=== PATIENT | female | born 1940 | race Caucasian/White ===

== ENCOUNTER 2023-09-01 23:47 | Inpatient (IN) | payer OTHER ==
[~2023-09-01] VITALS: Ht 157.5 cm; Wt 36.7 kg
[2023-09-02] VITALS (48 sets, daily range): BP systolic 75–138; BP diastolic 29–107; TEMP 98–99.8; O2SAT 90–100
[2023-09-02] MEDS ORDERED: VANCOMYCIN 1 GM in IV D5W 250 ML IV ONE ×2
[2023-09-02] MEDS ORDERED: IV NS 0.9% 1,000 ML BAG IV ONE
[2023-09-02] MEDS ORDERED: CEFEPIME 1 GM in IV D5W 50 ML IV ONE ×2
[2023-09-02] MEDS ORDERED: CEFEPIME 1 GM VIAL ONE (00:19)
[2023-09-02] MEDS ORDERED: VANCOMYCIN 1 GM /D5W 250 ML PB IV ONE (00:19)
[2023-09-02 00:21] LABS: BASOPHILS % (AUTO) 0.1 % (0.0-2.0); EOSINOPHILS % (AUTO) 0.1 % (0.0-6.0); HEMATOCRIT 46 % (33-45); HEMOGLOBIN 14.6 g/dL (11.5-14.8); LYMPHOCYTES # (AUTO) 0.3 K/uL (0.8-4.8); LYMPHOCYTES % (AUTO) 7.1 % (20.0-44.0); MEAN CORPUSCULAR HEMOGLOBIN 32 PG (26.0-33.0); MEAN CORPUSCULAR HGB CONC 32 g/dl (31.0-36.0); MEAN CORPUSCULAR VOLUME 99 fL (82-100); MONOCYTES # (AUTO) 0.2 K/uL (0.1-1.30); MONOCYTES % (AUTO) 4.6 % (2.0-12.0); NEUTROPHILS # (AUTO) 3.5 K/uL (1.8-8.9); NEUTROPHILS % (AUTO) 88.1 % (43.0-81.0); PLATELET COUNT (AUTO) 243 K/uL (150-450); RED BLOOD CELL COUNT(AUTO) 4.64 MIL/uL (4.0-5.2); RED CELL DISTRIBUTION WIDTH 15.2 % (11.5-15.0); WHITE BLOOD COUNT (AUTO) 3.9 K/uL (4.3-11.0)
[2023-09-02 00:36] LABS: CALCIUM, SERUM 9.9 mg/dL (8.5-10.1); CARBON DIOXIDE 18 mmol/L (21-32); CHLORIDE 105 mmol/L (98-107); CREATININE 1.2 mg/dL (0.6-1.3); GLUCOSE 166 mg/dL (74-106); POTASSIUM 3.8 mmol/L (3.5-5.1); SODIUM SERUM 136 mmol/L (136-145); UREA NITROGEN, BLOOD 26 mg/dL (7-18)
[2023-09-02 00:41] LABS: ALANINE AMINOTRANSFERASE 24 U/L (12-78); ALBUMIN 2.8 g/dL (3.4-5.0); ALKALINE PHOSPHATASE 37 U/L (46-116); ASPARTATE AMINOTRANSFERASE 46 U/L (15-37); BILIRUBIN,DIRECT 0.1 mg/dL (0.0-0.2); BILIRUBIN,TOTAL 0.6 mg/dL (0.2-1.0); INR 0.9 (0.91-1.10); PROTHROMBIN TIME 9.6 SECS (9.2-11.1)
[2023-09-02 00:54] LABS: LACTIC ACID 6.4 mmol/L (0.4-2.0)
[2023-09-02] MEDS ORDERED: ENOXAPARIN SODIUM 40 MG/0.4 ML DISP.SYRIN SQ SCH (01:30)
[2023-09-02] MEDS ORDERED: IV NS 0.9% 1,000 ML IV PRN (01:30)
[2023-09-02] MEDS ORDERED: ONDANSETRON HCL/PF 4 MG/2 ML VIAL IVP PRN (01:30)
[2023-09-02] MEDS ORDERED: ACETAMINOPHEN 650 MG/SUPP.RECT RC PRN (02:00)
[2023-09-02] MEDS ORDERED: IPRATROPIUM NEB FS 0.5 MG/2.5 ML AMPUL.NEB NEB PRN (02:00)
[2023-09-02 03:27] LABS: APPEARANCE,URINE TURBID (CLEAR); BILIRUBIN,URINE SMALL (NEGATIVE); BLOOD, URINE 2+ Ery/uL (NEGATIVE); COLOR,URINE YELLOW (YELLOW); KETONES,URINE NEGATIVE (NEGATIVE); NITRITE, URINE POSITIVE (NEGATIVE); PROTEIN,URINE 3+ mg/dl (NEGATIVE); UGLUCOSE NEGATIVE (NEGATIVE); UROBILINOGEN,URINE 0.2 EU/dL (0.2)
[2023-09-02 03:28] LABS: ADD URINE CULTURE YES; BACTERIA,URINE Many /HPF (None Seen); LEUKOCYTE ESTERASE ,URINE 1+ (NEGATIVE); RBC,URINE 51-80 /HPF (0-2); SQUAMOUS EPITHELIAL CELL,UR Few /HPF (None Seen)
[2023-09-02 04:18] LABS: ABG BASE EXCESS -7.2 mmol/L; ABG OXYGEN SATURATION 97.5 % (92.0-98.5); ABG PCO2 36.5 mmHg (35.0-45.0); ABG PH 7.315 (7.350-7.450); ABG PO2 112.5 mmHg (75.0-100.0); ABG TOTAL HEMOGLOBIN 14.2 G/dL (12.0-16.0); COHb 0.3 % (0.5-1.5); MetHb 0.3 % (0.0-1.5); O2Hb 96.9 % (94.0-97.0); SITE, ABG Right Brachial
[2023-09-02] MEDS ORDERED: MELA3TAB41 PO (04:22)
[2023-09-02] MEDS ORDERED: ATOR10TA PO (04:22)
[2023-09-02] MEDS ORDERED: MULT-754 PO (04:22)
[2023-09-02] MEDS ORDERED: GUAI-671 PO (04:22)
[2023-09-02] MEDS ORDERED: PANT40TA49 PO (04:22)
[2023-09-02] MEDS ORDERED: MIDO5TAB4 PO (04:22)
[2023-09-02] MEDS ORDERED: HYDR-4303 PO (04:22)
[2023-09-02] MEDS ORDERED: ASCO500C18 PO (04:22)
[2023-09-02] MEDS ORDERED: ALBU2.5V13 NEB (04:22)
[2023-09-02] MEDS ORDERED: MIDODRINE HCL (5MG) 5 MG TABLET PO PRN (08:00)
[2023-09-02] MEDS: CEFEPIME 2 GM in IV D5W 100 ML IV SCH (09:41)
[2023-09-02] MEDS ORDERED: FUROSEMIDE 20 MG/2 ML VIAL IV SCH (10:30)
[2023-09-02] MEDS ORDERED: FUROSEMIDE 40 MG/4 ML VIAL IV ONE (10:30)
[2023-09-02] MEDS ORDERED: DILTIAZEM HCL 50 MG IV IV ONE (15:30)
[2023-09-02] MEDS: DILTIAZEM HCL IV 125 MG in IV NS 0.9% 100 ML IV PRN (16:17)
[2023-09-02] MEDS: ATORVASTATIN 10 MG TABLET PO SCH (20:54)
[2023-09-02] MEDS: ENOXAPARIN SODIUM 30 MG/0.3 ML DISP.SYRIN SQ SCH (20:54)
[2023-09-02] MEDS: VANCOMYCIN 0.75 GM in IV D5W 250 ML IV SCH (23:16)
[2023-09-03] VITALS (97 sets, daily range): BP systolic 77–115; BP diastolic 48–94; TEMP 97.9–99.7; O2SAT 85–95
[2023-09-03] MEDS: DILTIAZEM HCL IV 125 MG in IV NS 0.9% 100 ML IV PRN ×3 (01:05→16:58)
[2023-09-03 05:20] LABS: EOSINOPHILS % (AUTO) 0.1 % (0.0-6.0); HEMATOCRIT 43 % (33-45); HEMOGLOBIN 13.8 g/dL (11.5-14.8); LYMPHOCYTES # (AUTO) 0.2 K/uL (0.8-4.8); LYMPHOCYTES % (AUTO) 2.1 % (20.0-44.0); MEAN CORPUSCULAR HEMOGLOBIN 31 PG (26.0-33.0); MEAN CORPUSCULAR HGB CONC 33 g/dl (31.0-36.0); MEAN CORPUSCULAR VOLUME 96 fL (82-100); MONOCYTES # (AUTO) 0.2 K/uL (0.1-1.30); MONOCYTES % (AUTO) 1.6 % (2.0-12.0); NEUTROPHILS # (AUTO) 11.4 K/uL (1.8-8.9); NEUTROPHILS % (AUTO) 96.2 % (43.0-81.0); PLATELET COUNT (AUTO) 247 K/uL (150-450); RED BLOOD CELL COUNT(AUTO) 4.41 MIL/uL (4.0-5.2); RED CELL DISTRIBUTION WIDTH 14.1 % (11.5-15.0); WHITE BLOOD COUNT (AUTO) 11.9 K/uL (4.3-11.0)
[2023-09-03 05:37] LABS: CALCIUM, SERUM 9.3 mg/dL (8.5-10.1); CREATININE 0.9 mg/dL (0.6-1.3); MAGNESIUM 2.2 mg/dL (1.8-2.4); PHOSPHORUS 2.4 mg/dL (2.5-4.9)
[2023-09-03 06:07] LABS: POTASSIUM 2.7 mmol/L (3.5-5.1)
[2023-09-03] MEDS ORDERED: PANTOPRAZOLE 40 MG TABLET.DR PO SCH (07:30)
[2023-09-03] MEDS: POTASSIUM CL. PREMIX PERIPHER. 50 ML IV SCH ×8 (07:51→16:56)
[2023-09-03] MEDS: PANTOPRAZOLE 40 MG VIAL IV SCH (08:08)
[2023-09-03] MEDS: CEFEPIME 2 GM in IV D5W 100 ML IV SCH (09:09)
[2023-09-03 09:35] LABS: LACTIC ACID 2.1 mmol/L (0.4-2.0)
[2023-09-03 09:59] LABS: THYROID STIMULATING HORMONE 0.723 uIU/mL (0.358-3.74)
[2023-09-03] MEDS ORDERED: Sodium Phosphate 15 MMOL in IV NS 0.9% 245 ML IV SCH (16:30)
[2023-09-03 18:43] LABS: CREATININE 1.1 mg/dL (0.6-1.3)
[2023-09-03] MEDS: ENOXAPARIN SODIUM 30 MG/0.3 ML DISP.SYRIN SQ SCH (21:37)
[2023-09-03] MEDS: MUPIROCIN OINT 2% 22 GM TUBE NS SCH (21:37)
[2023-09-03] MEDS: Z GUARD REMEDY 4 OZ OINT TP SCH (21:37)
[2023-09-03] MEDS: ATORVASTATIN 10 MG TABLET PO SCH (22:00)
[2023-09-03] MEDS: VANCOMYCIN 0.75 GM in IV D5W 250 ML IV SCH (23:09)
[2023-09-04] VITALS (104 sets, daily range): BP systolic 93–164; BP diastolic 56–131; TEMP 98–99.4; O2SAT 87–96
[2023-09-04] MEDS: DILTIAZEM HCL IV 125 MG in IV NS 0.9% 100 ML IV PRN ×2 (00:58→22:45)
[2023-09-04 05:26] LABS: BASOPHILS % (AUTO) 0.1 % (0.0-2.0); HEMATOCRIT 42 % (33-45); HEMOGLOBIN 13.9 g/dL (11.5-14.8); LYMPHOCYTES # (AUTO) 0.5 K/uL (0.8-4.8); LYMPHOCYTES % (AUTO) 4.9 % (20.0-44.0); MEAN CORPUSCULAR HEMOGLOBIN 32 PG (26.0-33.0); MEAN CORPUSCULAR HGB CONC 33 g/dl (31.0-36.0); MEAN CORPUSCULAR VOLUME 96 fL (82-100); MONOCYTES # (AUTO) 0.2 K/uL (0.1-1.30); PLATELET COUNT (AUTO) 227 K/uL (150-450); RED BLOOD CELL COUNT(AUTO) 4.34 MIL/uL (4.0-5.2); RED CELL DISTRIBUTION WIDTH 14.4 % (11.5-15.0); WHITE BLOOD COUNT (AUTO) 10.8 K/uL (4.3-11.0)
[2023-09-04 05:38] LABS: BILIRUBIN,TOTAL 0.5 mg/dL (0.2-1.0); CALCIUM, SERUM 8.8 mg/dL (8.5-10.1); CREATININE 0.9 mg/dL (0.6-1.3); PHOSPHORUS 3.3 mg/dL (2.5-4.9); POTASSIUM 3.1 mmol/L (3.5-5.1); TOTAL PROTEIN, SERUM 6.5 g/dL (6.4-8.2)
[2023-09-04] MEDS: PANTOPRAZOLE 40 MG VIAL IV SCH (08:27)
[2023-09-04] MEDS: MUPIROCIN OINT 2% 22 GM TUBE NS SCH ×2 (08:28→21:23)
[2023-09-04] MEDS: Z GUARD REMEDY 4 OZ OINT TP SCH ×2 (08:28→21:24)
[2023-09-04] MEDS ORDERED: POTASSIUM CHLORIDE 20 MEQ POWDER PACKET NG SCH (09:30)
[2023-09-04] MEDS: CEFEPIME 2 GM in IV D5W 100 ML IV SCH (10:12)
[2023-09-04] MEDS: POTASSIUM CL. PREMIX PERIPHER. 50 ML IV SCH ×4 (12:12→17:01)
[2023-09-04] MEDS: ENOXAPARIN SODIUM 30 MG/0.3 ML DISP.SYRIN SQ SCH (21:26)
[2023-09-04] MEDS: ATORVASTATIN 10 MG TABLET PO SCH (22:00)
[2023-09-04] MEDS: VANCOMYCIN 0.75 GM in IV D5W 250 ML IV SCH (22:51)
[2023-09-05] VITALS (73 sets, daily range): BP systolic 83–169; BP diastolic 49–121; TEMP 98.2–99.3; O2SAT 77–95
[2023-09-05 04:48] LABS: HEMATOCRIT 44 % (33-45); HEMOGLOBIN 14.2 g/dL (11.5-14.8); LYMPHOCYTES # (AUTO) 0.4 K/uL (0.8-4.8); LYMPHOCYTES % (AUTO) 2.6 % (20.0-44.0); MEAN CORPUSCULAR HEMOGLOBIN 31 PG (26.0-33.0); MEAN CORPUSCULAR HGB CONC 33 g/dl (31.0-36.0); MEAN CORPUSCULAR VOLUME 96 fL (82-100); MONOCYTES # (AUTO) 0.4 K/uL (0.1-1.30); MONOCYTES % (AUTO) 2.6 % (2.0-12.0); NEUTROPHILS % (AUTO) 94.8 % (43.0-81.0); PLATELET COUNT (AUTO) 241 K/uL (150-450); RED BLOOD CELL COUNT(AUTO) 4.53 MIL/uL (4.0-5.2); RED CELL DISTRIBUTION WIDTH 14.3 % (11.5-15.0); WHITE BLOOD COUNT (AUTO) 14.7 K/uL (4.3-11.0)
[2023-09-05 06:29] LABS: BILIRUBIN,TOTAL 0.4 mg/dL (0.2-1.0); TOTAL PROTEIN, SERUM 6.5 g/dL (6.4-8.2)
[2023-09-05 06:52] LABS: CALCIUM, SERUM 9.5 mg/dL (8.5-10.1); CREATININE 1.2 mg/dL (0.6-1.3)
[2023-09-05] MEDS: MUPIROCIN OINT 2% 22 GM TUBE NS SCH ×2 (08:02→21:04)
[2023-09-05] MEDS: PANTOPRAZOLE 40 MG VIAL IV SCH (08:02)
[2023-09-05] MEDS: Z GUARD REMEDY 4 OZ OINT TP SCH ×2 (08:02→21:03)
[2023-09-05] MEDS: CEFEPIME 2 GM in IV D5W 100 ML IV SCH (09:04)
[2023-09-05] MEDS: DILTIAZEM HCL IV 125 MG in IV NS 0.9% 100 ML IV PRN ×2 (11:55→23:46)
[2023-09-05] MEDS ORDERED: ATORVASTATIN 10 MG TABLET NG SCH (13:02)
[2023-09-05] MEDS ORDERED: MIDODRINE HCL (5MG) 5 MG TABLET NG PRN (13:02)
[2023-09-05] MEDS: JEVITY 1.2 CAL 1,000 ML BOTTLE NG PRN (17:12)
[2023-09-05] MEDS: ENOXAPARIN SODIUM 30 MG/0.3 ML DISP.SYRIN SQ SCH (21:06)
[2023-09-05] MEDS: VANCOMYCIN 0.75 GM in IV D5W 250 ML IV SCH (22:51)
[2023-09-06] VITALS (63 sets, daily range): BP systolic 87–123; BP diastolic 53–91; TEMP 97.7–99.3; O2SAT 87–97
[2023-09-06 05:01] LABS: HEMATOCRIT 43 % (33-45); HEMOGLOBIN 13.7 g/dL (11.5-14.8); LYMPHOCYTES # (AUTO) 0.3 K/uL (0.8-4.8); LYMPHOCYTES % (AUTO) 2.6 % (20.0-44.0); MEAN CORPUSCULAR HEMOGLOBIN 31 PG (26.0-33.0); MEAN CORPUSCULAR HGB CONC 32 g/dl (31.0-36.0); MEAN CORPUSCULAR VOLUME 97 fL (82-100); MONOCYTES # (AUTO) 0.3 K/uL (0.1-1.30); MONOCYTES % (AUTO) 2.3 % (2.0-12.0); NEUTROPHILS # (AUTO) 10.5 K/uL (1.8-8.9); NEUTROPHILS % (AUTO) 95.1 % (43.0-81.0); PLATELET COUNT (AUTO) 236 K/uL (150-450); RED BLOOD CELL COUNT(AUTO) 4.43 MIL/uL (4.0-5.2); RED CELL DISTRIBUTION WIDTH 14.6 % (11.5-15.0)
[2023-09-06 05:15] LABS: ALANINE AMINOTRANSFERASE 22 U/L (12-78); ALBUMIN 1.9 g/dL (3.4-5.0); ALKALINE PHOSPHATASE 32 U/L (46-116); ASPARTATE AMINOTRANSFERASE 29 U/L (15-37); BILIRUBIN,TOTAL 0.5 mg/dL (0.2-1.0); CALCIUM, SERUM 9.6 mg/dL (8.5-10.1); CARBON DIOXIDE 24 mmol/L (21-32); CHLORIDE 119 mmol/L (98-107); CREATININE 1.5 mg/dL (0.6-1.3); GLUCOSE 203 mg/dL (74-106); POTASSIUM 3.5 mmol/L (3.5-5.1); SODIUM SERUM 151 mmol/L (136-145); TOTAL PROTEIN, SERUM 6.5 g/dL (6.4-8.2); UREA NITROGEN, BLOOD 53 mg/dL (7-18)
[2023-09-06] MEDS: MUPIROCIN OINT 2% 22 GM TUBE NS SCH ×2 (09:11→20:42)
[2023-09-06] MEDS: CEFEPIME 2 GM in IV D5W 100 ML IV SCH (09:11)
[2023-09-06] MEDS: Z GUARD REMEDY 4 OZ OINT TP SCH ×2 (09:11→20:42)
[2023-09-06] MEDS: PANTOPRAZOLE 40 MG/PACK PACK GT SCH (09:11)
[2023-09-06] MEDS: IV D5/ 0.9% NACL 1,000 ML IV PRN (14:08)
[2023-09-06] MEDS ORDERED: DILTIAZEM HCL IV 125 MG in IV NS 0.9% 100 ML IV PRN (18:30)
[2023-09-06] MEDS: ENOXAPARIN SODIUM 30 MG/0.3 ML DISP.SYRIN SQ SCH (20:43)
[2023-09-06] MEDS: JEVITY 1.2 CAL 1,000 ML BOTTLE NG PRN (21:34)
[2023-09-06] MEDS: VANCOMYCIN 0.75 GM in IV D5W 250 ML IV SCH (22:14)
[2023-09-07] VITALS (36 sets, daily range): BP systolic 80–138; BP diastolic 49–115; TEMP 98–101.5; O2SAT 89–97
[2023-09-07 04:42] LABS: BASOPHILS % (AUTO) 0.1 % (0.0-2.0); HEMATOCRIT 43 % (33-45); HEMOGLOBIN 13.7 g/dL (11.5-14.8); LYMPHOCYTES # (AUTO) 0.4 K/uL (0.8-4.8); LYMPHOCYTES % (AUTO) 3.3 % (20.0-44.0); MEAN CORPUSCULAR HEMOGLOBIN 31 PG (26.0-33.0); MEAN CORPUSCULAR HGB CONC 32 g/dl (31.0-36.0); MEAN CORPUSCULAR VOLUME 97 fL (82-100); MONOCYTES # (AUTO) 0.2 K/uL (0.1-1.30); MONOCYTES % (AUTO) 2.1 % (2.0-12.0); NEUTROPHILS # (AUTO) 10.7 K/uL (1.8-8.9); NEUTROPHILS % (AUTO) 94.5 % (43.0-81.0); PLATELET COUNT (AUTO) 233 K/uL (150-450); RED BLOOD CELL COUNT(AUTO) 4.41 MIL/uL (4.0-5.2); RED CELL DISTRIBUTION WIDTH 14.9 % (11.5-15.0); WHITE BLOOD COUNT (AUTO) 11.3 K/uL (4.3-11.0)
[2023-09-07 04:59] LABS: ALANINE AMINOTRANSFERASE 22 U/L (12-78); ALBUMIN 1.8 g/dL (3.4-5.0); ALKALINE PHOSPHATASE 38 U/L (46-116); ASPARTATE AMINOTRANSFERASE 25 U/L (15-37); BILIRUBIN,TOTAL 0.5 mg/dL (0.2-1.0); CALCIUM, SERUM 9.5 mg/dL (8.5-10.1); CARBON DIOXIDE 23 mmol/L (21-32); CHLORIDE 121 mmol/L (98-107); CREATININE 1.6 mg/dL (0.6-1.3); GLUCOSE 195 mg/dL (74-106); POTASSIUM 3.2 mmol/L (3.5-5.1); SODIUM SERUM 155 mmol/L (136-145); TOTAL PROTEIN, SERUM 6.3 g/dL (6.4-8.2); UREA NITROGEN, BLOOD 57 mg/dL (7-18)
[2023-09-07] MEDS: IV D5/ 0.9% NACL 1,000 ML IV PRN (05:36)
[2023-09-07] MEDS ORDERED: POTASSIUM CHLORIDE 20 MEQ POWDER PACKET GT SCH (08:00)
[2023-09-07] MEDS: ACETAMINOPHEN 325 MG TABLET PO PRN ×2 (08:56→17:46)
[2023-09-07] MEDS: PANTOPRAZOLE 40 MG/PACK PACK GT SCH (08:56)
[2023-09-07] MEDS: AMIODARONE HCL 200 MG TABLET NG SCH ×2 (08:56→16:59)
[2023-09-07] MEDS: Z GUARD REMEDY 4 OZ OINT TP SCH ×2 (08:59→21:32)
[2023-09-07] MEDS: MUPIROCIN OINT 2% 22 GM TUBE NS SCH ×2 (08:59→21:32)
[2023-09-07] MEDS: CEFEPIME 2 GM in IV D5W 100 ML IV SCH (09:00)
[2023-09-07] MEDS ORDERED: GLUCERNA 1.2 1,000 ML BOTTLE NG PRN (12:30)
[2023-09-07] MEDS ORDERED: MEROPENEM 500 MG in IV NS 0.9% 50 ML IV SCH (17:00)
[2023-09-07] MEDS ORDERED: MEROPENEM 1 G in IV NS 0.9% 100 ML IV SCH (17:00)
[2023-09-07] MEDS: ENOXAPARIN SODIUM 30 MG/0.3 ML DISP.SYRIN SQ SCH (21:30)
[2023-09-07] MEDS: VANCOMYCIN 0.75 GM in IV D5W 250 ML IV SCH (23:13)
[2023-09-08] VITALS: BP 78/47; TEMP 98.4; O2SAT 80; O2SAT 92
[2023-09-08 00:55] VITALS: O2SAT 78
[2023-09-08 01:00] VITALS: BP 124/33; O2SAT 77
[2023-09-08 02:00] VITALS: BP 102/29; O2SAT 85
[2023-09-08] MEDS ORDERED: PROSOURCE / PROSTAT (PYXIS) 30 ML UDC GT SCH (09:00)
== END 2023-09-08 06:05 | DRG 871 ==
LOC: ER 23:57 → ICU 09-02 01:35
PROVIDERS: ADMIT Nurse Practitioner Acute Care; ATTEND Internal Medicine
PROC: 5A09357 Assistance with Respiratory Ventilation, Less than 24 Consecutive Hours, Continuous Positive Airway Pressure (ICD-10-PCS; principal; 2023-09-02)
PROC: 05H533Z Insertion of Infusion Device into Right Subclavian Vein, Percutaneous Approach (ICD-10-PCS; 2023-09-02)
PROC: B546ZZA Ultrasonography of Right Subclavian Vein, Guidance (ICD-10-PCS; 2023-09-02)
DX: A41.9 Sepsis, unspecified organism (principal); G92.8 Other toxic encephalopathy; J96.01 Acute respiratory failure with hypoxia; N17.0 Acute kidney failure with tubular necrosis; J15.69 Pneumonia due to other Gram-negative bacteria; E87.20 Acidosis, unspecified; E44.0 Moderate protein-calorie malnutrition; N39.0 Urinary tract infection, site not specified; E87.0 Hyperosmolality and hypernatremia; E78.5 Hyperlipidemia, unspecified; E87.6 Hypokalemia; E88.09 Other disorders of plasma-protein metabolism, not elsewhere classified; G30.9 Alzheimer's disease, unspecified; F02.80 Dementia in other diseases classified elsewhere, unspecified severity, without behavioral disturbance, psychotic disturbance, mood disturbance, and anxiety; I48.91 Unspecified atrial fibrillation; Z74.09 Other reduced mobility; L89.156 Pressure-induced deep tissue damage of sacral region; Z66 Do not resuscitate; Z96.641 Presence of right artificial hip joint; F09 Unspecified mental disorder due to known physiological condition; I50.9 Heart failure, unspecified; I11.0 Hypertensive heart disease with heart failure; E83.41 Hypermagnesemia
CPT/HCPCS: 36410; 36415; 36600; 71045-TC; 80048-TC; 80053-TC; 80061-TC; 80076-TC; 80202-TC; 81001; 82533; 82803-TC; 83605-TC; 83735-TC; 84100-TC; 84439-TC; 84443-TC; 84484-TC; 85025-TC; 85730-TC; 87040-TC; 87081-TC; 87086-TC; 93307-TC; 94799-TC; 99082-TC; A4223; A9563; C9113; C9803; G0378; J0692; J1650; J1940; J2185; J2405; J3370; J3480; J3490; J7030; J7040; J7042; J7050; J7060